=== PATIENT | female | born 2000 | race African-American/Black ===

== ENCOUNTER 2019-07-12 06:24 | Emergency (ER) | payer OTHER ==
[~2019-07-12] VITALS: Ht 157.5 cm; Wt 71.8 kg
[2019-07-12] MEDS ORDERED: ACETAMINOPHEN 500 MG TAB PO ONE (07:00)
[2019-07-12] MEDS ORDERED: ONDANSETRON 4 MG ORAL DISINTEGRATING TAB (Q0162 PER 1MG) PO ONE (07:00)
--- NOTE | 2019-07-12 07:13 | REPVR ---
PROCEDURE INFORMATION: Exam: CT Head Without Contrast Exam date and time: 07/12/2019 7:00 AM Clinical history: 19 years old, female; Pain; Headache not specified; Additional info: Frequent, worsening headaches TECHNIQUE: Imaging protocol: Computed tomography of the head without contrast. Radiation optimization: All CT scans at this facility use at least one of these dose optimization techniques: automated exposure control; mA and/or kV adjustment per patient size (includes targeted exams where dose is matched to clinical indication); or iterative reconstruction. COMPARISON: No relevant prior studies available. FINDINGS: Brain: Normal. No hemorrhage. Unremarkable white matter. No mass effect. Ventricles: Normal. No ventriculomegaly. Bones/joints: Unremarkable. No acute fracture. Sinuses: Visualized sinuses are unremarkable. No fluid levels. Mastoid air cells: Visualized mastoid air cells are well aerated. Soft tissues: Unremarkable. IMPRESSION: No acute intracranial abnormality. Electronically signed by: Kajal Vazquez On 07/12/2019 07:12:50 AM
[2019-07-12] MEDS ORDERED: KETO10TAB PO (07:30)
[2019-07-12] MEDS ORDERED: ONDA4TAB6 PO (07:30)
[2019-07-12 07:37] VITALS: BP 106/68
== END 2019-07-12 07:38 | disposition home or self-care (01) ==
LOC: M ED 06:24
DX: R51 Headache (principal)
CPT/HCPCS: 70450; 84702; 99284; Q0162

== ENCOUNTER 2019-11-23 11:44 | Inpatient (IN) | payer OTHER ==
[~2019-11-23] VITALS: Ht 157.5 cm; Wt 70.0 kg
[~2019-11-23 11:44] MED LIST: KETO10TAB PO; ONDA4TAB6 PO
[2019-11-23] MEDS ORDERED: TRAZ1TAB12 PO (11:56)
[2019-11-23 12:22] LABS: HEMATOCRIT 43.9 % (36.0-47.0); HEMOGLOBIN 14.5 g/dl (12.0-15.5); MEAN CORPUSCULAR HEMOGLOBIN 29.4 pg (27.0-33.0); PLATELET COUNT, AUTOMATED 374 10^3/uL (150-450); RED BLOOD COUNT 4.93 10^6/uL (4.00-5.40); WHITE BLOOD COUNT 6.2 10^3/uL (4.0-10.0)
[2019-11-23 12:44] LABS: HCG, SERUM QUALITATIVE NEGATIVE (NEGATIVE)
[2019-11-23 12:52] LABS: ACETAMINOPHEN LEVEL < 2.0 UG/ML (10.0-30.0); ALBUMIN 4.4 GM/DL (3.2-5.2); ALT/SGPT 25 U/L (12-78); BILIRUBIN,DIRECT 0.2 MG/DL (0.0-0.2); BILIRUBIN,TOTAL 0.6 MG/DL (0.2-1.0); BLOOD UREA NITROGEN 8 MG/DL (7-18); CALCIUM LEVEL 9.5 MG/DL (8.5-10.1); CARBON DIOXIDE LEVEL 29 MEQ/L (21-32); CHLORIDE LEVEL 105 MEQ/L (98-107); CREATININE FOR GFR 0.74 MG/DL (0.55-1.30); ETHYL ALCOHOL (ETHANOL) < 0.003 % (0.000-0.010); GLOMERULAR FILTRATION RATE > 60.0 (>60); GLUCOSE, FASTING 91 MG/DL (70-100); SALICYLATE LEVEL < 1.7 MG/DL (5.0-30.0); SODIUM LEVEL 138 MEQ/L (136-145); TOTAL PROTEIN 8.5 GM/DL (6.4-8.2)
[2019-11-23 12:54] LABS: AMPHETAMINES LEVEL URINE NEGATIVE (NEGATIVE); BARBITURATES URINE NEGATIVE (NEGATIVE); BENZODIAZEPINES URINE NEGATIVE (NEGATIVE); CANNABINOIDS URINE NEGATIVE (NEGATIVE); COCAINE METABOLITE URINE NEGATIVE (NEGATIVE); METHADONE URINE NEGATIVE (NEGATIVE); OPIATES URINE NEGATIVE (NEGATIVE); PHENCYCLIDINE URINE NEGATIVE (NEGATIVE)
[2019-11-23] MEDS ORDERED: MULTTAB20 PO (13:01)
[2019-11-23] MEDS ORDERED: IBUPROFEN 400 MG TAB PO PRN (14:45)
[2019-11-23] MEDS ORDERED: MAALOX 30 ML SUSP *UDC PO PRN (14:45)
[2019-11-23] MEDS ORDERED: MOM 30ML SUSPENSION UDC PO PRN (14:45)
[2019-11-23 15:39] VITALS: BP 101/55
[2019-11-23] MEDS: traZODone 50 MG TAB PO PRN (20:44)
[2019-11-24 06:13] VITALS: BP 102/50
--- NOTE | 2019-11-24 11:40 | MHHPEPDOC ---
General Date Of Admission: Nov 23, 2019 Legal Status: 9.39 Chief Complaint "I was having thoughts of killing myself." History of Present Illness HISTORY OF THE PRESENT ILLNESS: Patient is a 19 -year-old , female, with no previous psych history ho was brought to ED after seen at [facility] by her therapist as a walk-in and reporting SI with plan to OD on pills she had at home due to psychosocial stressors and work and with her marriage per pt's therapist but pt did not elude to these stressors in the ED and had stated work and her relationship had been going well for the past month per the ED. Past Psychiatric History Previous Psychiatric Diagnosis: denies Previous Psychiatric Admissions: denies Suicide Attempts: history of cutting and hitting shins with a hammer 2yrs ago and never sought help for Psychiatric Follow-up: [facility] Psychiatric medications: trazodone; Wellbutrin caused anxiety and paranoia, buspar Past Medical History Medical Problems denies Head Injury: No Seizures: No Hospitalizations: No Surgeries: No Family Medical/Psychiatric HX Medical Problems denies Psychiatric Disorders: No Addiction: Yes (father - substance abuse, drugs) Suicide Attemps/Completions: No Addiction History denies Social History Childhood: Born and Raised [place] raised by mother, father in long term due to drug charges and has since . 6 siblings told and she was the second oldest. Ok childhood. Stated would be physically disciplined by mother and aunt at times. Abuse/Trauma:denies sexual, emotional abuse Current Living Situation: live with in [place], [place] Education: high school edu Employment: [employer], customer logistics manager Social Support: family, Legal: denies Marital: , no kids Mental Status Examination General Appearance: well groomed, appears stated age, hospital scubs/clothing Build: average Demeanor: average Eye Contact: average Activity: average Behavior: cooperative, other (shy) Mood: euthymic, anxious Mood "better" Affect: full, appropriate, congruent, anxious Thought Process: logical/linear Thought Content (Delusions): none reported Thought Content (Other): none reported Thought Content (Aggressive): none reported Perception (Hallucinations): none reported Perception (Other): none reported Cognition (Impairment of): none reported Cognition(Intelligence Est.): average Oriented: Awake, Alert, Oriented times three Insight: good Judgment: Good Psychosis: Denies Diagnoses depression unspecified R/O Generalized anxiety d/o A-FIB/CHADSVASC A-FIB History Current/History of A-Fib/PAF?: No Assessment Pt seen and states she's here b/c she's been feeling anxious and has been having mood changes thru out the day that are usually do to situations. States that s he's been going to [facility] for the past year and they started her on wellbutrin xl and buspar but that they were making her feel worse, more anxious and paranoid, but that [facility] wanted to increase it. Pt stated she stopped taking both a few months ago due to the way they were making her feel but [facility] kept wanting to restart her on it and felt they weren't really listening to what she was saying which she found really frustrating. Denies she was really having thoughts to harm herself on admission and feels bad that she worried everyone (family, Estela), but didn't know what else to do to get help for the way she was feeling. States she feels validated here and heard finally which is making her feel much better. Discussed with pt medications and pt agreeable to starting prozac for mood and anxiety, risks/benefits discussed. Denies SI/HI, hallucinations, delusions. Feels safe here. Initial Treatment Plan 1. Patient was admitted on a 9.39 status. 2. Complete history was obtained. 3. With patients permission, family will be contacted and database will be expanded. 4. Patients medication regimen will be reviewed and changed accordingly. 5. Patient will be provided with protected environment. 6. Patient will be treated with individual, group, and milieu therapies. 7. Patient will receive supportive psych-education. 8. Discharge planning will commence immediately. 9. Outpatient follow-up treatment will be strongly recommended. 10. The initial treatment plan will focus initially on: * Depression. * Risk for suicide. 11. prozac 10mg daily for mood ESTIMATED LENGTH OF STAY: 3-5 DAYS. TIME SPENT COUNSELING AND COORDINATING INITIAL CARE: 60 minutes. Vital Signs Vital Signs Date Time Temp Pulse Resp B/P (MAP) Pulse Ox O2 Delivery O2 Flow Rate FiO2 11/24/19 09:05 Room Air 11/24/19 06:13 98.8 60 18 102/50 (67) 11/23/19 15:39 100 Laboratory Data 24H Labs Laboratory Tests 2 11/23/19 12:08: Nucleated Red Blood Cells % (auto) 0.0, Anion Gap 4L, Glomerular Filtration Rate > 60.0, Calcium Level 9.5, Total Bilirubin 0.6, Direct Bilirubin 0.2, Aspartate Amino Transf (AST/SGOT) 20, Alanine Aminotransferase (ALT/SGPT) 25, Alkaline Ph osphatase 43L, Total Protein 8.5H, Albumin 4.4, Albumin/Globulin Ratio 1.07, Thyroid Stimulating Hormone (TSH) 1.560, Human Chorionic Gonadotropin, Qual NEGATIVE, Salicylates Level < 1.7L, Urine Opiates Screen NEGATIVE, Urine Methadone Screen NEGATIVE, Acetaminophen Level < 2.0L, Urine Barbiturates Screen NEGATIVE, Urine Phencyclidine Screen NEGATIVE, Urine Amphetamines Screen NEGATIVE, Urine Benzodiazepines Screen NEGATIVE, Urine Cocaine Metabolite Screen NEGATIVE, Urine Cannabinoids Screen NEGATIVE, Ethyl Alcohol Level < 0.003 CBC/BMP Laboratory Tests 11/23/19 12:08 Medications Scheduled No122/Iron/Folic Acid ( Multi Tablet) 1 Each Tablet, 1 TAB PO DAILY, (Reported) Trazodone HCl (Trazodone HCl) 100 Mg Tablet, 200 MG PO QHS, (Reported) Allergies Coded Allergies: No Known Allergies (Unverified , 07/12/19) VALERIE LARA DO Nov 24, 2019 10:51 am
[2019-11-24] MEDS ORDERED: hydrOXYzine 25 MG TAB PO PRN (12:00)
[2019-11-24] MEDS ORDERED: FLUoxetine 10 MG CAP PO ONE (12:00)
--- NOTE | 2019-11-24 14:30 | HPEPDOC ---
General Date of Admission Nov 23, 2019 at 14:45 Date of Service: Nov 24, 2019 Chief Complaint The patient is a 19-year-old female admitted with a reason for visit of Depressive Disorder. History of Present Illness 19 year old female admitted to psychiatric unit for suicidal ideations. Patient currently awake and alert, denies fever/chills, n/v/d, chest pain/pressure, abdominal pain, shortness of breath, urinary complaints. Home Medications Scheduled No122/Iron/Folic Acid ( Multi Tablet) 1 Each Tablet, 1 TAB PO DAILY, (Reported) Trazodone HCl (Trazodone HCl) 100 Mg Tablet, 200 MG PO QHS, (Reported) Allergies Coded Allergies: No Known Allergies (Unverified , 07/12/19) Past Medical History Medical History none Surgical History none Family History Significant Family History: No pertinent family hx Social History * Smoker: Denies Alcohol: Denies Drugs: denies A-FIB/CHADSVASC A-FIB History Current/History of A-Fib/PAF?: No Review of Systems Constitutional: Denies: Chills, Fever, Night Sweats Eyes: Denies: Pain, Vision change ENT: Denies: Head Aches, Ear Pain, Dysphagia Skin: Denies: Rash, Lesions, Breakdown Pulmonary: Denies: Dyspnea, Cough Cardiovascular: Denies: Chest Pain, Palpitations, Orthopnea, Paroxysmal Noc. Dyspnea, Lt Headedness Gastrointestinal: Denies: Nausea, Vomiting, Abdominal Pain, Diarrhea Genitourinary: Denies: Dysuria, Frequency, Incontinence, Retention Hematologic: Denies: Bruising, Bleeding Excessively Musculoskeletal: Denies: Neck Pain, Back Pain, Joint Pain, Muscle Pain, Spasms Neurological: Denies: Weakness, Numbness, Change in speech, Confusion Psych: Reports: Mood Normal; Denies: Depression, Memory Issues Physical Examination General Exam: Positive: Alert, No Acute Distress Eye Exam: Positive: PERRLA, Conjunctiva & lids normal, EOMI; Negative: Sclera icteric ENT Exam: Positive: Atraumatic, Mucous membr. moist/pink, Pharynx Normal Neck Exam: Positive: Supple; Negative: JVD, thyromegaly Chest Exam: Positive: Clear to auscultation, Normal air movement Heart Exam: Positive: Rate Normal, Regular Rhythm, Normal S1, Normal S2; Negative: Murmurs, Rubs Telemetry: Positive: No significant arrhythmia Abdomen Exam: Positive: Normal bowel sounds, Soft; Negative: Tenderness, Hepatospenomegaly Extremity Exam: Positive: Normal pulses; Negative: Clubbing, Cyanosis, Edema Skin Exam: Positive: Nl turgor and temperature; Negative: Breakdown, Lesion Neuro Exam: Positive: Normal Gait, Normal Speech, Cranial Nerves 3-12 NL, Reflexes 2+ Psych Exam: Positive: Mental status NL, Mood NL, Oriented x 3 Vital Signs Vital Signs Date Time Temp Pulse Resp B/P (MAP) Pulse Ox O2 Delivery O2 Flow Rate FiO2 11/24/19 09:05 Room Air 11/24/19 06:13 98.8 60 18 102/50 (67) 11/23/19 15:39 100 Assessment/Plan 1. suicidal ideations - management as per psychiatry. Thank you for this consultation, no active medical issues, we will sign off. Please reconsult as needed. Plan / VTE VTE Prophylaxis Ordered?: No MARA POND MD Nov 24, 2019 14:30
[2019-11-24 16:00] VITALS: BP 113/55
[2019-11-24 17:23] VITALS: BP 113/55
[2019-11-24] MEDS: traZODone 50 MG TAB PO PRN (21:31)
[2019-11-25 06:27] VITALS: BP 105/58
[2019-11-25] MEDS ORDERED: FLUO10CA15 PO (08:46)
[2019-11-25] MEDS ORDERED: TRAZ1TAB12 PO (08:46)
--- NOTE | 2019-11-25 08:46 | MHDSPDOC ---
[facility] Discharge Summary Discharge Summary DATE OF ADMISSION: Nov 23, 2019 at 2:45 pm DATE OF DISCHARGE: Nov 25, 2019 DISCHARGE DIAGNOSES: depression unspecified R/O Generalized anxiety d/o REASON FOR ADMISSION: Patient is a 19 -year-old , female, with no previous psych history ho was brought to ED after seen at [facility] by her th erapist as a walk-in and reporting SI with plan to OD on pills she had at home due to psychosocial stressors and work and with her marriage per pt's therapist but pt did not elude to these stressors in the ED and had stated work and her relationship had been going well for the past month per the ED. Pt seen and states she's here b/c she's been feeling anxious and has been having mood changes thru out the day that are usually do to situations. States that she's been going to [facility] for the past year and they started her on wellbutrin xl and buspar but that they were making her feel worse, more anxious and paranoid, but that [facility] wanted to increase it. Pt stated she stopped taking both a few months ago due to the way they were making her feel but [facility] kept wanting to restart her on it and felt they weren't really listening to what she was saying which she found really frustrating. Denies she was really having thoughts to harm herself on admission and feels bad that she worried everyone (family, Estela), but didn't know what else to do to get help for the way she was feeling. States she feels validated here and heard finally which is making her feel much better. Discussed with pt medications and pt agreeable to starting prozac for mood and anxiety, risks/benefits discussed. Denies SI/HI, hallucinations, delusions. Feels safe here. CONSULTANTS INVOLVED: none TREATMENT AND PROGRESS ON THE UNIT : Pt was admitted to [facility], seen for psychiatric assessment and started on prozac 10mg daily for mood and anxiety. She was provided vistaril 25mg q6hr prn anxiety and restarted on her outpatient trazodone 200mg qhs for insomnia. Pt found her medications beneficial and tolerated them well. She attended groups daily during her stay. Her symptoms improved with treatment. On day of discharge she denied depression, anxiety, insomnia, SI/HI, hallucinations, delusions. She was discharged home with her Estela with follow-up at [facility]. She felt safe for discharge. DISCHARGE ASSESSMENT: Pt seen and states that her mood is "good" and that she's looking forward to going home with her Estela today. States she slept well last night. Feels she is tolerating her prozac and it's beneficial. States she's feels glad that she was heard and that she's been helped here and really found her treatment here beneficial for her. She is attending groups and finding them helpful. She denies depression, anxiety, insomnia, SI/HI, hallucinations, delusions. Pt feels safe to be discharged home with her Estela today. MENTAL STATUS EXAMINATION ON DISCHARGE: General Appearance: well groomed, appears stated age, hospital scrubs/clothing Build: average Demeanor: average Eye Contact: average Activity: average Behavior: cooperative, other (shy) Mood: euthymic, anxious Mood "good" Affect: full, appropriate, congruent, anxious Thought Process: logical/linear Thought Content (Delusions): none reported Thought Content (Other): none reported Thought Content (Aggressive): none reported Perception (Hallucinations): none reported Perception (Other): none reported Cognition (Impairment of): none reported Cognition(Intelligence Est.): average Oriented: Awake, Alert, Oriented times three Insight: good Judgment: Good Psychosis: Denies MEDICATIONS ON DISCHARGE: prozac 10mg daily for mood trazodone 200mg qhs PLAN/FOLLOWUP ARRANGEMENTS: D/c home with her Estela with follow-up at [facility]. The amount of time spent in the coordination of care for this patient was approximately 30 minutes. Vital Signs/I&Os Vital Signs Date Time Temp Pulse Resp B/P (MAP) Pulse Ox O2 Delivery O2 Flow Rate FiO2 11/25/19 06:27 99.0 72 14 105/58 (74) 11/24/19 09:05 Room Air 11/23/19 15:39 100 Medications Scheduled No122/Iron/Folic Acid ( Multi Tablet) 1 Each Tablet, 1 TAB PO DAILY, (Reported) Trazodone HCl (Trazodone HCl) 100 Mg Tablet, 200 MG PO QHS, (Reported) Allergies Coded Allergies: No Known Allergies (Unverified , 07/12/19) VALERIE LARA DO Nov 25, 2019 8:46 am
[2019-11-25] MEDS ORDERED: FLUoxetine 10 MG CAP PO SCH (09:00)
== END 2019-11-25 13:28 | disposition home or self-care (01) | DRG 881 ==
LOC: M ED 11:44 → M ED INP 14:45 → M PSY 15:50
PROVIDERS: ADMIT Psychiatry & Neurology Psychiatry; ATTEND Psychiatry & Neurology Psychiatry
DX: F32.9 Major depressive disorder, single episode, unspecified (principal); F41.1 Generalized anxiety disorder; Z79.899 Other long term (current) drug therapy

== ENCOUNTER 2019-11-27 17:57 | Inpatient (IN) | payer OTHER ==
[~2019-11-27] VITALS: Ht 157.5 cm; Wt 68.5 kg
[~2019-11-27 17:57] MED LIST changes: +FLUO10CA15 PO; +MULTTAB20 PO; +TRAZ1TAB12 PO
[2019-11-27 19:36] LABS: HEMATOCRIT 40.7 % (36.0-47.0); HEMOGLOBIN 13.8 g/dl (12.0-15.5); MEAN CORPUSCULAR HEMOGLOBIN 29.2 pg (27.0-33.0); MEAN CORPUSCULAR HGB CONC 33.9 g/dl (32.0-36.5); PLATELET COUNT, AUTOMATED 421 10^3/uL (150-450); RED BLOOD COUNT 4.73 10^6/uL (4.00-5.40); WHITE BLOOD COUNT 8.1 10^3/uL (4.0-10.0)
[2019-11-27 20:05] LABS: AMPHETAMINES LEVEL URINE NEGATIVE (NEGATIVE); BARBITURATES URINE NEGATIVE (NEGATIVE); BENZODIAZEPINES URINE NEGATIVE (NEGATIVE); CANNABINOIDS URINE NEGATIVE (NEGATIVE); COCAINE METABOLITE URINE NEGATIVE (NEGATIVE); METHADONE URINE NEGATIVE (NEGATIVE); OPIATES URINE NEGATIVE (NEGATIVE); PHENCYCLIDINE URINE NEGATIVE (NEGATIVE)
[2019-11-27 20:19] LABS: ACETAMINOPHEN LEVEL < 2.0 UG/ML (10.0-30.0); ALBUMIN 4.4 GM/DL (3.2-5.2); ALT/SGPT 28 U/L (12-78); BILIRUBIN,DIRECT 0.2 MG/DL (0.0-0.2); BILIRUBIN,TOTAL 0.7 MG/DL (0.2-1.0); BLOOD UREA NITROGEN 11 MG/DL (7-18); CALCIUM LEVEL 9.4 MG/DL (8.5-10.1); CARBON DIOXIDE LEVEL 26 MEQ/L (21-32); CHLORIDE LEVEL 103 MEQ/L (98-107); CREATININE FOR GFR 0.81 MG/DL (0.55-1.30); ETHYL ALCOHOL (ETHANOL) < 0.003 % (0.000-0.010); GLOMERULAR FILTRATION RATE > 60.0 (>60); GLUCOSE, FASTING 116 MG/DL (70-100); POTASSIUM SERUM 3.9 MEQ/L (3.5-5.1); SALICYLATE LEVEL < 1.7 MG/DL (5.0-30.0); SODIUM LEVEL 134 MEQ/L (136-145); TOTAL PROTEIN 8.4 GM/DL (6.4-8.2)
[2019-11-27] MEDS ORDERED: ACETAMINOPHEN TAB 650MG DOSE (2X325MG) PO PRN (21:15)
[2019-11-27] MEDS ORDERED: hydrOXYzine 25 MG TAB PO PRN (21:15)
[2019-11-27] MEDS ORDERED: MOM 30ML SUSPENSION UDC PO PRN (21:15)
[2019-11-27] MEDS ORDERED: MAALOX 30 ML SUSP *UDC PO PRN (21:15)
[2019-11-27 21:37] LABS: URINE PREG TEST NEGATIVE (NEGATIVE)
[2019-11-27] MEDS ORDERED: FLUO10TA2 PO (22:08)
[2019-11-27] MEDS ORDERED: TRAZ-189 PO (22:11)
[2019-11-27 23:00] VITALS: BP 105/64
[2019-11-27] MEDS: traZODone 100 MG TAB PO PRN (23:52)
[2019-11-28 06:38] VITALS: BP 99/56
--- NOTE | 2019-11-28 08:35 | MHHPEPDOC ---
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 The patient reported that, at the time of discharge, she felt ready and was eager to leave, but afterwards had become severely anxious and began to have more panic attacks over the last several days where she began to endorse passive SI and a fear that she could harm herself. She admitted to no significant changes in her psychiatric symptoms and psychosocial information from her previous admission 2 days ago. The patient reports feeling distressed about her anxiety. Review Of Systems Depression: No symptoms. Anxiety: As above. Sophia: No changes. Psychotic: No changes. Trauma: No changes. Borderline: No changes. Past Psychiatric History Has a history of inpatient admission 2 days ago. She follows with [facility]. She was discharged with diagnoses consistent of unspecified depression with concern for general anxiety. She was started on Prozac and Vistaril on her last admission. She had previously been on trazodone. Reportedly has a history of cutting and self mutilation, but no overt suicide attempts. Allergies Please see below. Family Psychiatric History Has a history of addiction namely her father who abuses drugs, but no history of psychiatric disorders or suicide. Social History The patient was born and raised in [place] by her mother. Her father was in [place] [facility] due to drug charges and . She has 6 siblings and she is the second oldest. She reportedly had significant physical discipline as a child. But had denied any sexual or emotional abuse growing up. Currently lives with her in the local area. Graduated from high school. 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 No legal trouble at this time. with no children at this time. Substance Abuse History The patient denies any excessive alcohol use, tobacco or illicit drug use, denies history of substance use treatment. Medical History Patient has no significant past medical history. Mental Status Examination General: Well dressed with good hygiene Speech: Spontaneous and fluid Thought processes: Linear and logical MSK: Smooth and coordinated gait, no signs of tremors or involuntary orofacial movements Thought content: Hopeless Abstract reasoning, and computation: Intact Description of associations: Intact Description of abnormal or psychotic thoughts: Denies any suicidal or homicidal ideation. Denies any auditory or visual hallucinations. Does not appear to be responding to internal stimuli. Does not appear to be endorsing any bizarre or paranoid ideation. Judgment: Limited Insight: Limited Orientation: Alert and orientated 3 Cognition: Grossly normal Recent and remote memory: Intact Attention span and concentration: Intact Fund of knowledge: Adequate Mood: "bad" Affect: Anxious with a constricted range Diagnoses Unspecified depression. Unspecified anxiety disorder. Concern for chronic cluster B traits. Assessment and Plan Unspecified depression/anxiety: Will restart Prozac and hydroxyzine for now. Further disposition and potentially testing could be helpful. Disposition Patient will need a further inpatient admission in order to treat her severe and impairing anxiety and depression. Problem List 1. Risk for suicide. 2. Depression with anxiety. Initial Treatment Plan 1. Patient was admitted on a 9.39 legal status. 2. Complete history was obtained. 3. With patients permission, family will be contacted and database will be expanded. 4. Patients medication regimen will be reviewed and changed accordingly. 5. Patient will be provided with protected environment. 6. Patient will be treated with individual, group, and milieu therapies. 7. Patient will receive supportive psych-education. 8. Discharge planning will commence immediately. 9. Outpatient follow-up treatment will be strongly recommended. 10. The initial treatment plan will focus initially on: Estimated Length Of Stay 3 days. Time Spent 70 minutes with greater than 50% of time in counseling/coordination of care. Vital Signs Vital Signs Date Time Temp Pulse Resp B/P (MAP) Pulse Ox O2 Delivery O2 Flow Rate FiO2 11/28/19 06:38 98.6 92 16 99/56 (70) Room Air 11/27/19 23:00 96 Laboratory Data 24H Labs Laboratory Tests 2 11/27/19 19:23: Nucleated Red Blood Cells % (auto) 0.0, Urine Test NEGATIVE, Anion Gap 5L, Glomerular Filtration Rate > 60.0, Calcium Level 9.4, Total Bilirubin 0.7, Direct Bilirubin 0.2, Aspartate Amino Transf (AST/SGOT) 22, Alanine Aminotransferase (ALT/SGPT) 28, Alkaline Phosphatase 49, Total Protein 8.4H, Albumin 4.4, Albumin/Globulin Ratio 1.10, Thyroid Stimulating Hormone (TSH) 1.010, Salicylates Level < 1.7L, Urine Opiates Screen NEGATIVE, Urine Methadone Screen NEGATIVE, Acetaminophen Level < 2.0L, Urine Barbiturates Screen NEGATIVE, Urine Phencyclidine Screen NEGATIVE, Urine Amphetamines Screen NEGATIVE, Urine Benzodiazepines Screen NEGATIVE, Urine Cocaine Metabolite Screen NEGATIVE, Urine Cannabinoids Screen NEGATIVE, Ethyl Alcohol Level < 0.003 CBC/BMP Laboratory Tests 11/27/19 19:23 Medications Scheduled Fluoxetine HCl (Fluoxetine HCl) 10 Mg Tablet, 10 MG PO DAILY, (Reported) Scheduled PRN Trazodone HCl (Trazodone HCl) 100 Mg Tablet, 200 MG PO QHS PRN for INSOMNIA, (Reported) Allergies Coded Allergies: No Known Allergies (Unverified , 11/27/19) KATELYN VICENTE DO Nov 28, 2019 08:35
[2019-11-28] MEDS: FLUoxetine 10 MG CAP PO SCH (09:36)
--- NOTE | 2019-11-28 14:13 | HPEPDOC ---
[facility] [place] Medical History & Physical Date of Admission Nov 28, 2019 Date of Service: Nov 28, 2019 History and Physical CHIEF COMPLAINT: Admitted and patient went to health unit for depression HISTORY OF PRESENT ILLNESS: 19-year-old female with past medical history of depression and is admitted to inpatient at health unit for worsening depression and suicidal ideation. Patient was recently admitted last week, was discharged a few days ago and returns with worsening depression and suicidal thoughts. Patient reports having these thoughts whenever she has increased stress in her life. Patient denies trying to kill herself, but she does want to hurt herself because "people leave you alone if you're hurt". Patient was thinking about throwing herself off the stairs at her home, but her stopped her. Patient came to the hospital before her thoughts and actions worsened. Patient has no medical complaints at this time, denies any shortness of breath, chest pain, nausea, vomiting, abdominal pain or diarrhea. Patient denies any other medical history, denies taking any medication. 10 point review of system is negative so for above PAST MEDICAL HISTORY: 1. Depression. PAST SURGICAL HISTORY: 1. Nasal turbinate surgery. SOCIAL HISTORY: Denies smoking. Social alcohol use. Denies drug use FAMILY HISTORY: No family history of malignancy or heart disease ALLERGIES: Please see below HOME MEDICATIONS: Please see below. PHYSICAL EXAMINATION: VITAL SIGNS: Please see below. GENERAL: No distress HEENT: Normocephalic, atraumatic, moist mucous membranes NECK: Supple CARDIOVASCULAR EXAMINATION: S1, S2, no murmurs RESPIRATORY EXAMINATION: Clear to auscultation, no wheezing ABDOMINAL EXAMINATION: Soft, nontender, nondistended, positive bowel sounds EXTREMITIES: Range of motion intact SKIN: No rash NEUROLOGICAL EXAMINATION: Alert and oriented 3, no focal deficits PSYCHIATRIC EXAMINATION: Calm and cooperative LABORATORY DATA: See below. MICROBIOLOGY: Please see below. ASSESSMENT: 19-year-old female with past medical history of depression and is admitted for worsening depression and suicidal ideation. PLAN: 1. Depression with suicidal ideation. Management as per primary team Patient does not have any active medical issues at this time, please reconsult if needed. Vital Signs Vital Signs Date Time Temp Pulse Resp B/P (MAP) Pulse Ox O2 Delivery O2 Flow Rate FiO2 11/28/19 06:38 98.6 92 16 99/56 (70) Room Air 11/27/19 23:00 96 Laboratory Data Labs 24H Laboratory Tests 2 2/23/20 19:23: Nucleated Red Blood Cells % (auto) 0.0, Urine Test NEGATIVE, Anion Gap 5L, Glomerular Filtration Rate > 60.0, Calcium Level 9.4, Total Bilirubin 0.7, Direct Bilirubin 0.2, Aspartate Amino Transf (AST/SGOT) 22, Alanine Aminotransferase (ALT/SGPT) 28, Alkaline Phosphatase 49, Total Protein 8.4H, Albumin 4.4, Albumin/Globulin Ratio 1.10, Thyroid Stimulating Hormone (TSH) 1.010, Salicylates Level < 1.7L, Urine Opiates Screen NEGATIVE, Urine Methadone Screen NEGATIVE, Acetaminophen Level < 2.0L, Urine Barbiturates Screen NEGATIVE, Urine Phencyclidine Screen NEGATIVE, Urine Amphetamines Screen NEGATIVE, Urine Benzodiazepines Screen NEGATIVE, Urine Cocaine Metabolite Screen NEGATIVE, Urine Cannabinoids Screen NEGATIVE, Ethyl Alcohol Level < 0.003 CBC/BMP Laboratory Tests 11/27/19 19:23 Home Medications Scheduled Fluoxetine HCl (Fluoxetine HCl) 10 Mg Tablet, 10 MG PO DAILY Scheduled PRN Trazodone HCl (Trazodone HCl) 100 Mg Tablet, 200 MG PO QHS PRN for INSOMNIA Allergies Coded Allergies: No Known Allergies (Unverified , 11/27/19) A-FIB/CHADSVASC A-FIB History Current/History of A-Fib/PAF?: No ION CARBAJAL MD Nov 28, 2019 14:13
[2019-11-28] MEDS ORDERED: traZODone 100 MG TAB PO PRN (14:45)
[2019-11-28 15:45] VITALS: BP 110/57
[2019-11-29 06:53] VITALS: BP 101/56
[2019-11-29] MEDS ORDERED: FLUoxetine 10 MG CAP PO SCH (09:00)
[2019-11-29] MEDS: FLUoxetine 10 MG CAP PO SCH (10:11)
[2019-11-29] MEDS: OSELTAMIVIR PHOSPHATE 75 MG CAP (TAMIFLU) PO SCH (12:11)
[2019-11-29 16:00] VITALS: BP 118/56
--- NOTE | 2019-11-29 18:20 | IPNPDOC ---
Text Note Date of Service The patient was seen on 11/29/19. NOTE Subjective: Patient was seen and examined. Patient reports that she would like to receive prophylaxis for influenza given her exposure in inpatient mental health unit. Objective: Vitals (See below) General: Standing up, no acute distress, comfortable, AAOx3 HEENT: NC, AT CVS: RRR Lungs: Fair air entry b/l, -w/r/r Assessment and plan: Influenza prophylaxis - Discussed with the patient currently about prophylaxis - At this point, patient does not have any symptoms of influenza. Denies any runny nose, watery eyes or muscle aches - Lungs are clear to auscultation bilaterally - Will continue with Tamiflu 75 mg by mouth daily for 14 days Thank you for this consultation. Please reconsult as needed VS,Fishbone, I+O VS, Fishbone, I+O Vital Signs Date Time Temp Pulse Resp B/P (MAP) Pulse Ox O2 Delivery O2 Flow Rate FiO2 11/29/19 06:53 98.9 77 14 101/56 (71) 11/28/19 06:38 Room Air 11/27/19 23:00 96 KAROLINA POND MD Nov 29, 2019 18:20
[2019-11-29] MEDS: traZODone 100 MG TAB PO PRN (21:34)
--- NOTE | 2019-11-29 23:44 | MHIPN ---
DATE: 11/29/2019 The patient states, "I'm good." She feels her anxiety is under better control this time, and she has no complaints. MENTAL STATUS EXAM: She is alert and oriented times three. She is pleasant and cooperative and verbally spontaneous. Eye contact is good. There is no formal thought disorder noted. Mood is "good." Affect is full range and appropriate to mood. She is not psychotic suicidal or homicidal. Concentration is fair. Memory is intact. Insight and judgment is fair. DIAGNOSES: Unspecified depressive disorder. Unspecified anxiety disorder. TREATMENT PLAN: At this point, we will continue to monitor the patient for continued elevation and stabilization of her mood.
[2019-11-30 06:43] VITALS: BP 98/55
[2019-11-30] MEDS: FLUoxetine 10 MG CAP PO SCH (08:44)
[2019-11-30] MEDS: OSELTAMIVIR PHOSPHATE 75 MG CAP (TAMIFLU) PO SCH (08:44)
--- NOTE | 2019-11-30 10:02 | MHIPNPDOC ---
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 The patient reported that, at the time of discharge, she felt ready and was eager to leave, but afterwards had become severely anxious and began to have more panic attacks over the last several days where she began to endorse passive SI and a fear that she could harm herself. She admitted to no significant changes in her psychiatric symptoms and psychosocial information from her previous admission 2 days ago. The patient reports feeling distressed about her anxiety. Interval History Narrative: The patient is met with today in the group setting. She reports she is feeling much improved and wishes to be discharged. Affective: The patient reports no depression symptoms at this time, with complete resolution. Psychotic: Denies any symptoms. Anxiety: The patient reports no anxious behaviors. Eating and sleeping behaviors: Within normal limits. Group Attendance: Frequent. Medication Side effects: See ROS below Behavioral problems/significant events overnight: None reported. Staff Report: Patient generally friendly, amenable and happy in the milieu. Review Of Systems General: Denies fever or appetite changes Cardiovascular: Denies Chest pain or palpations GI: Denies Nausea, vomiting, or bowel changes Respiratory: Denies shortness of breath or cough Neuro: Denies dizziness, tremors Derm: Denies any rashes or pruritus : Denies any dysuria or urinary problems MSK: Denies any muscle tightness or stiffness HEENT: Denies any vision changes or headaches Psychotherapy None on this visit. Vital Signs Reviewed. Mental Status Examination General: Well dressed with good hygiene Speech: Spontaneous and fluid Thought processes: Linear and logical MSK: Smooth and coordinated gait, no signs of tremors or involuntary orofacial movements Thought content: Future orientated Abstract reasoning, and computation: Intact Description of associations: Intact Description of abnormal or psychotic thoughts: Denies any suicidal or homicidal ideation. Denies any auditory or visual hallucinations. Does not appear to be responding to internal stimuli. Does not appear to be endorsing any bizarre or paranoid ideation. Judgment: fair Insight: fair Orientation: Alert and orientated 3 Cognition: Grossly normal Recent and remote memory: Intact Attention span and concentration: Intact Fund of knowledge: Adequate Mood: "okay" Affect: Euthymic with a full range Diagnoses Unspecified depression. Unspecified anxiety disorder. Concern for chronic cluster B traits. Assessment and Plan Unspecified depression/anxiety: Continue Prozac and hydroxyzine. Disposition Discharge tomorrow to [facility] pending weather. Time Spent 15 minutes. Vital Signs Vital Signs Date Time Temp Pulse Resp B/P (MAP) Pulse Ox O2 Delivery O2 Flow Rate FiO2 11/30/19 06:43 98.8 95 16 98/55 (69) 11/28/19 06:38 Room Air 11/27/19 23:00 96 Current Medications Current Medications Medications (Trade) Dose Ordered Sig/Kisha Route PRN Reason Start Time Stop Time Status Last Admin Dose Admin Acetaminophen (Tylenol Tab) 650 mg Q6HP PRN PO HEADACHE or DISCOMFORT 11/27/19 21:15 Al Hydrox/Mg Hydrox/Simethicone (Mylanta) 30 ml Q4HP PRN PO HEARTBURN/INDIGESTION 11/27/19 21:15 Fluoxetine HCl (PROzac) 10 mg DAILY PO 11/28/19 09:00 11/30/19 08:44 Fluoxetine HCl (PROzac) 10 mg DAILY PO 11/29/19 09:00 11/28/19 14:49 DC Home Med (Med Rec Complete!) ASDIRECTED XX 11/27/19 22:15 11/27/19 22:15 DC Hydroxyzine HCl (Atarax) 25 mg Q4HP PRN PO anxiety 11/27/19 21:15 Magnesium Hydroxide (Milk Of Magnesia) 30 ml DAILYPRN PRN PO CONSTIPATION 11/27/19 21:15 Oseltamivir Phosphate (Tamiflu) 75 mg DAILY PO 11/29/19 09:00 11/30/19 08:44 Trazodone HCl (Desyrel) 200 mg QHS PRN PO INSOMNIA 11/28/19 14:45 11/28/19 14:49 DC Trazodone HCl (Desyrel) 200 mg QHSP PRN PO INSOMNIA 11/27/19 21:15 11/29/19 21:34 Allergies Coded Allergies: No Known Allergies (Unverified , 11/27/19) KATELYN VICENTE DO Nov 30, 2019 10:02
[2019-11-30] MEDS ORDERED: FLUO10TA2 PO (10:53)
[2019-11-30] MEDS ORDERED: TRAZ-189 PO (10:53)
[2019-11-30 16:00] VITALS: BP 124/59
[2019-11-30] MEDS: traZODone 100 MG TAB PO PRN (22:59)
[2019-12-01 06:27] VITALS: BP_SYST 104; BP_SYST 106; BP_DIAS 52; BP_DIAS 55
--- NOTE | 2019-12-01 08:42 | MHIPNPDOC ---
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 The patient reported that, at the time of discharge, she felt ready and was eager to leave, but afterwards had become severely anxious and began to have more panic attacks over the last several days where she began to endorse passive SI and a fear that she could harm herself. She admitted to no significant changes in her psychiatric symptoms and psychosocial information from her previous admission 2 days ago. The patient reports feeling distressed about her anxiety. Interval History Narrative: The patient is met with in the team setting. She reports being improved, mildly upset about not being able to go due to weather, but otherwise doing well. Affective: The patient reports no depression symptoms at this time, with complete resolution. Psychotic: Denies any symptoms. Anxiety: The patient reports no anxious behaviors. Eating and sleeping behaviors: Within normal limits. Group Attendance: Frequent. Medication Side effects: See ROS below Behavioral problems/significant events overnight: None reported. Staff Report: Patient generally friendly, amenable and happy in the milieu. Review Of Systems General: Denies fever or appetite changes Cardiovascular: Denies Chest pain or palpations GI: Denies Nausea, vomiting, or bowel changes Respiratory: Denies shortness of breath or cough Neuro: Denies dizziness, tremors Derm: Denies any rashes or pruritus : Denies any dysuria or urinary problems MSK: Denies any muscle tightness or stiffness HEENT: Denies any vision changes or headaches Psychotherapy None on this visit. Vital Signs Reviewed. Mental Status Examination General: Well dressed with good hygiene Speech: Spontaneous and fluid Thought processes: Linear and logical MSK: Smooth and coordinated gait, no signs of tremors or involuntary orofacial movements Thought content: Future orientated Abstract reasoning, and computation: Intact Description of associations: Intact Description of abnormal or psychotic thoughts: Denies any suicidal or homicidal ideation. Denies any auditory or visual hallucinations. Does not appear to be responding to internal stimuli. Does not appear to be endorsing any bizarre or paranoid ideation. Judgment: fair Insight: fair Orientation: Alert and orientated 3 Cognition: Grossly normal Recent and remote memory: Intact Attention span and concentration: Intact Fund of knowledge: Adequate Mood: "okay" Affect: Euthymic with a full range Diagnoses Unspecified depression. Unspecified anxiety disorder. Concern for chronic cluster B traits. Assessment and Plan Unspecified depression/anxiety: Continue Prozac and hydroxyzine. Disposition Discharged to [facility] once for term behavioral health reopens. Time Spent 15 minutes. Vital Signs Vital Signs Date Time Temp Pulse Resp B/P (MAP) Pulse Ox O2 Delivery O2 Flow Rate FiO2 12/01/19 06:27 99.2 73 16 106/55 (72) 11/28/19 06:38 Room Air 11/27/19 23:00 96 Current Medications Current Medications Medications (Trade) Dose Ordered Sig/Kisha Route PRN Reason Start Time Stop Time Status Last Admin Dose Admin Acetaminophen (Tylenol Tab) 650 mg Q6HP PRN PO HEADACHE or DISCOMFORT 11/27/19 21:15 Al Hydrox/Mg Hydrox/Simethicone (Mylanta) 30 ml Q4HP PRN PO HEARTBURN/INDIGESTION 11/27/19 21:15 Fluoxetine HCl (PROzac) 10 mg DAILY PO 11/28/19 09:00 11/30/19 08:44 Fluoxetine HCl (PROzac) 10 mg DAILY PO 11/29/19 09:00 11/28/19 14:49 DC Home Med (Med Rec Complete!) ASDIRECTED XX 11/27/19 22:15 11/27/19 22:15 DC Hydroxyzine HCl (Atarax) 25 mg Q4HP PRN PO anxiety 11/27/19 21:15 Magnesium Hydroxide (Milk Of Magnesia) 30 ml DAILYPRN PRN PO CONSTIPATION 11/27/19 21:15 Oseltamivir Phosphate (Tamiflu) 75 mg DAILY PO 11/29/19 09:00 11/30/19 10:54 DC 11/30/19 08:44 Trazodone HCl (Desyrel) 200 mg QHS PRN PO INSOMNIA 11/28/19 14:45 11/28/19 14:49 DC Trazodone HCl (Desyrel) 200 mg QHSP PRN PO INSOMNIA 11/27/19 21:15 11/30/19 22:59 Allergies Coded Allergies: No Known Allergies (Unverified , 11/27/19) KATELYN VICENTEb 27, 2020 08:42
[2019-12-01] MEDS: FLUoxetine 10 MG CAP PO SCH (09:24)
[2019-12-01 17:47] VITALS: BP 104/54
[2019-12-01] MEDS: traZODone 100 MG TAB PO PRN (22:34)
[2019-12-02 06:16] VITALS: BP 121/58
--- NOTE | 2019-12-02 09:10 | MHDSPDOC ---
[facility] Discharge Summary Discharge Summary DATE OF ADMISSION: Nov 27, 2019 at 21:13 DATE OF DISCHARGE: 12/02/19 Discharge Rudy Lizama MRN: N/A Date of : N/A Date of Service: 12/02/2019 Diagnoses Unspecified depression. Unspecified anxiety disorder. Concern for chronic cluster B traits. 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 The patient reported that, at the time of discharge, she felt ready and was eager to leave, but afterwards had become severely anxious and began to have more panic attacks over the last several days where she began to endorse passive SI and a fear that she could harm herself. She admitted to no significant changes in her psychiatric symptoms and psychosocial information from her previous admission 2 days ago. The patient reports feeling distressed about her anxiety. Consultants Involved Hospitalist/PCP screening Treatment and Progress On The Unit The patient was admitted to the inpatient mental health unit after a reported relapse on her anxiety. The patient was evaluate where she strangely appeared to be euthymic and "that she got anxious" after leaving on her last admission. She was resumed on her previous medications are Prozac and hydroxyzine, returning to a baseline mental status from analysis of her previous of her previous records. The patient then was triaged for discharge at her request, however, this was complicated by inclement weather, eventually the weather remitted and she was able to be discharged. She attended groups well, had no behavioral problems and generally was friendly and amenable upon approach. The discordance in her presentation is concerning for cluster B personality traits versus fabrication. 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 They decline voluntary extension/admission at this time and must be discharged in good [place], as Im unable to make a case for holding the patient against their will. They may have historical risk factors of admissions and other interactions with psychiatry however, those are not modifiable from a clinical perspective. The patient will need to be discharged in good [place]. Mental Status Examination General: Well dressed with good hygiene Speech: Spontaneous and fluid Thought processes: Linear and logical MSK: Smooth and coordinated gait, no signs of tremors or involuntary orofacial movements Thought content: Future orientated Abstract reasoning, and computation: Intact Description of associations: Intact Description of abnormal or psychotic thoughts: Denies any suicidal or homicidal ideation. Denies any auditory or visual hallucinations. Does not appear to be responding to internal stimuli. Does not appear to be endorsing any bizarre or paranoid ideation. Judgment: fair Insight: fair Orientation: Alert and orientated 3 Cognition: Grossly normal Recent and remote memory: Intact Attention span and concentration: Intact Fund of knowledge: Adequate Mood: "okay" Affect: Euthymic with a full range Follow Up The social work team worked during the predischarge meeting in order to evaluate for further issues of lethality address them fully before discharge. They worked on safety planning with the patient's family members in order to ensure that the patient will have a safe and effective discharge. Time Spent The amount of time spent in the coordination of care for this patient was approximately minutes. Thursday Vital Signs/I&Os Vital Signs Date Time Temp Pulse Resp B/P (MAP) Pulse Ox O2 Delivery O2 Flow Rate FiO2 12/02/19 06:16 98.8 72 16 121/58 (79) 11/28/19 06:38 Room Air 11/27/19 23:00 96 Medications Scheduled Fluoxetine HCl (Fluoxetine HCl) 10 Mg Tablet, 10 MG PO DAILY for mood for 7 Days, #7 Scheduled PRN Trazodone HCl (Trazodone HCl) 100 Mg Tablet, 200 MG PO QHS PRN for INSOMNIA for 7 Days, #14 Allergies Coded Allergies: No Known Allergies (Unverified , 11/27/19) KATELYN VICENTE DO Dec 02, 2019 09:10
[2019-12-02] MEDS: FLUoxetine 10 MG CAP PO SCH (09:42)
== END 2019-12-02 11:40 | disposition home or self-care (01) | DRG 881 ==
LOC: M ED 17:57 → M ED INP 21:13 → M PSY 22:46
PROVIDERS: ADMIT Psychiatry & Neurology Psychiatry; ATTEND Psychiatry & Neurology Psychiatry
DX: F32.9 Major depressive disorder, single episode, unspecified (principal); F41.9 Anxiety disorder, unspecified; F60.89 Other specific personality disorders

== ENCOUNTER 2020-07-20 18:36 | Emergency (ER) | payer OTHER ==
[~2020-07-20] VITALS: Ht 157.5 cm; Wt 64.8 kg
[~2020-07-20 18:36] MED LIST changes: -FLUO10CA15 PO; +FLUO10CA16 PO; +FLUO10TA2 PO; +TRAZ-189 PO
[2020-07-20] MEDS ORDERED: CETI-24 PO (18:50)
[2020-07-20 19:52] LABS: BASO % 0.5 % (0.0-1.0); EOS # 0.2 10^3/uL (0.0-0.5); EOS % 1.9 % (0.0-3.0); HEMATOCRIT 40.5 % (36.0-47.0); HEMOGLOBIN 13.7 g/dl (12.0-15.5); LYMPH # 3.1 10^3/uL (1.5-5.0); LYMPH % 34.8 % (24.0-44.0); MEAN CORPUSCULAR HEMOGLOBIN 29.5 pg (27.0-33.0); MEAN CORPUSCULAR HGB CONC 33.8 g/dl (32.0-36.5); MEAN CORPUSCULAR VOLUME 87.3 fl (80.0-96.0); MONO # 0.5 10^3/uL (0.0-0.8); MONO % 6.1 % (0.0-5.0); NEUTROPHILS % 56.4 % (36.0-66.0); PLATELET COUNT, AUTOMATED 367 10^3/uL (150-450); RED BLOOD COUNT 4.64 10^6/uL (4.00-5.40); WHITE BLOOD COUNT 8.8 10^3/uL (4.0-10.0)
[2020-07-20 20:16] LABS: BILIRUBIN,DIRECT 0.2 MG/DL (0.0-0.2); BILIRUBIN,TOTAL 0.8 MG/DL (0.2-1.0); FREE T4 1.04 NG/DL (0.76-1.46); THYROID STIMULATING HORMONE 2.15 uIU/ML (0.358-3.740); TOTAL PROTEIN 7.9 GM/DL (6.4-8.2)
[2020-07-20 20:53] VITALS: BP 114/71
--- NOTE | 2020-07-21 08:05 | ECGEPIP ---
[facility] - ED Test Date: 2020-07-20 Pat Name: KORINA SERVIN Department: Room: - Gender: Female Play Leader: JESI : 2000 Requested By: Jazmin Michaud Order Number: [id number] Reading MD: Ren Vasques Measurements Intervals [place] Rate: 96 P: 55 NE: 169 QRS: 37 QRSD: 74 T: 20 QT: 334 QTc: 423 Interpretive Statements SINUS RHYTHM POSSIBLE LEFT ATRIAL ENLARGEMENT Comparison tracing not on file Electronically Signed on 07-21-2020 8:05:28 EDT by Ren Vasques
== END 2020-07-20 20:59 | disposition home or self-care (01) ==
LOC: M ED 18:36
DX: R00.2 Palpitations (principal); R07.9 Chest pain, unspecified; R06.02 Shortness of breath; R94.31 Abnormal electrocardiogram [ECG] [EKG]; F33.9 Major depressive disorder, recurrent, unspecified; F41.9 Anxiety disorder, unspecified

== ENCOUNTER 2022-04-28 13:02 | Emergency (ER) | payer OTHER ==
[~2022-04-28] VITALS: Ht 160 cm; Wt 77.2 kg
[~2022-04-28 13:02] MED LIST changes: +CETI-24 PO; -FLUO10CA16 PO; +FLUO10CA18 PO
[2022-04-28 13:03] VITALS: BP 145/86
== END 2022-04-28 13:55 | disposition left against medical advice (07) ==
LOC: M ED 13:02
DX: Z53.21 Procedure and treatment not carried out due to patient leaving prior to being seen by health care provider (principal)